=== PATIENT | female | born 1990 | race Caucasian/White ===

== ENCOUNTER 2018-01-20 01:33 | Emergency (ER) | payer SELFPAY ==
[2018-01-20 01:33] VITALS: BP 148/101; PULSE 130; RESP 20; TEMP 37.6; O2SAT 95; BMI 34.2
--- NOTE | 2018-01-20 01:45 | RAD_ITS ---
STUDY: X-RAY CHEST REASON FOR EXAM: Female, 27 years old. Cough TECHNIQUE: 2 views COMPARISON: None. FINDINGS: The lungs are clear and expanded. There is no demonstrated pleural abnormality. Normal size heart. Normal mediastinum and mega. Normal visualized pulmonary arteries. Normal visualized aortic arch and descending thoracic aorta. Normal visualized thoracic spine. Normal visualized ribs, clavicles, and shoulders. There is no demonstrated abnormality of the visualized soft tissue structures of the upper abdomen. RAD/Chest PA and Lateral IMPRESSION: Normal x-ray examination of the chest. No acute findings in the lungs Electronically Signed: Reed Cartre, at 2:48 EDT Tel , Service support ,
[2018-01-20] MEDS: Ketorolac 15 MG/ML Vial IM (01:52)
--- NOTE | 2018-01-20 02:01 | ED.VISSUMM ---
- ER Visit Summary Date of Service: 01/20/18 Chief Complaint: [] Flu symptoms History of Present Illness: The patient is a 27 F [] complaining of body aches, nonproductive cough, sore throat, fever/chills for the last 6 days. She reports normal fluid intake, however she has a decreased appetite. Physical Examination: [] Afebrile, pulse 130. Remainder of vitals unremarkable. Morbidly obese young female in no acute distress. Cardiovascular exam is regular rate and rhythm. Lungs are clear to auscultation. Abdomen is soft nontender. Test Results: [] Chest x-ray: Negative per my interpretation. Emergency Department Course and Treatment: [] Patient had a very benign presentation underwent a negative chest x-ray. She requested a note off for work. I did not feel she warranted any laboratory studies or intravenous fluids. Patient was given IM Toradol and IM Phenergan for symptom relief. She will be given a prescription for Phenergan for home. Treatment Plan: [] Follow-up with PCP. Disposition: [] Discharge, stable. Impression: [] URI This note was generated with [employer] dictation software. It may contain incorrect words, spelling, and punctuation that were not noted in review of the chart prior to signing ED Disposition - Plan for ED Patient: Chief Complaint: Cold Sx Referrals: Kike Botello DO [Primary Care Provider] -
--- NOTE | 2018-01-20 02:05 | ED.DCSUM_ITS ---
- ER Visit Summary Date of Service: 01/20/18 Chief Complaint: [] Flu symptoms History of Present Illness: The patient is a 27 F [] complaining of body aches, nonproductive cough, sore throat, fever/chills for the last 6 days. She reports normal fluid intake, however she has a decreased appetite. Physical Examination: [] Afebrile, pulse 130. Remainder of vitals unremarkable. Morbidly obese young female in no acute distress. Cardiovascular exam is regular rate and rhythm. Lungs are clear to auscultation. Abdomen is soft nontender. Test Results: [] Chest x-ray: Negative per my interpretation. Emergency Department Course and Treatment: [] Patient had a very benign presentation underwent a negative chest x-ray. She requested a note off for work. I did not feel she warranted any laboratory studies or intravenous fluids. Patient was given IM Toradol and IM Phenergan for symptom relief. She will be given a prescription for Phenergan for home. Treatment Plan: [] Follow-up with PCP. Disposition: [] Discharge, stable. Impression: [] URI This note was generated with [employer] dictation software. It may contain incorrect words, spelling, and punctuation that were not noted in review of the chart prior to signing ED Disposition - Plan for ED Patient: Chief Complaint: Cold Sx Referrals: Kike Botello DO [Primary Care Provider] -
--- NOTE | 2018-01-20 02:05 | ED.DEP ---
ED Disposition - Plan for ED Patient: Disposition: Home or Assisted Living Chief Complaint: Cold Sx Instructions: ED Upper Resp Infec No Abx Tx Prescriptions: ProMETHAzine [Phenergan] 25 mg PO Q6H PRN PRN #20 tab PRN Reason: Nausea Referrals: Kike Botello DO [Primary Care Provider] -
[2018-01-20 02:21] VITALS: BP 103/60; PULSE 116; RESP 16; O2SAT 94
== END 2018-01-20 02:22 | disposition home or self-care (01) ==
LOC: ED 02:12
PROVIDERS: Emergency Provider Emergency Medicine
DX: J06.9 Acute upper respiratory infection, unspecified (principal); E28.2 Polycystic ovarian syndrome; E66.01 Morbid (severe) obesity due to excess calories; Z79.84 Long term (current) use of oral hypoglycemic drugs; Z79.3 Long term (current) use of hormonal contraceptives; Z79.899 Other long term (current) drug therapy
CPT/HCPCS: 71046; 96372; 99283

== ENCOUNTER → 2021-09-10 | Outpatient (CLI) | payer OTHER, SELFPAY | END | disposition home or self-care (01) | PROVIDERS: Visit Provider Family Medicine | DX: Z03.818 Encounter for observation for suspected exposure to other biological agents ruled out (principal) | CPT/HCPCS: 87635; U0005; U0003 ==